=== PATIENT | male | born 1945 | race Caucasian/White ===

== ENCOUNTER 2018-03-07 14:10 | Observation (INO) | payer MEDICARE, BC ==
--- NOTE | 2018-03-07 14:38 | EDM.PDOC ---
ED HPI GENERAL MEDICAL PROBLEM - General Stated Complaint: STOMACH PAIN Time Seen by Provider: 03/07/18 14:28 Source of Information: Reports: Patient History Limitations: Reports: No Limitations - History of Present Illness INITIAL COMMENTS - FREE TEXT/NARRATIVE: This 72 yo male patient reports to the ED with increased abdominal pain. The patient reports his abdominal pain started at about noon. The patient reports he attempted to eat lunch, but vomited after eating 1/2 hamburger. The patient reports he has had a similar episode in the past which got better after he had an NG tube placed and stayed in the [facility] for a couple of days. 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 The patient reports no additional symptoms or concerns at this time. Onset: Today Onset Date: 03/07/18 Onset Time: 12:00 Duration: Constant, Getting Worse Location: Reports: Abdomen (pain and cramping) Quality: Reports: Ache, Sharp Severity: Severe Improves with: Reports: None Worsens with: Reports: None Associated Symptoms: Reports: Nausea/Vomiting Middle Abdomen Pain Score (Numeric/FACES): 10 - Related Data Allergies Allergy/AdvReac Type Severity Reaction Status Date / Time Penicillins Allergy Hives Verified 03/07/18 14:36 ED ROS GENERAL - Review of Systems Review Of Systems: ROS reveals no pertinent complaints other than HPI. ED EXAM, GI/ABD - Physical Exam Exam: See Below Exam Limited By: No Limitations General Appearance: Alert, WD/WN, Moderate Distress, Thin Eyes: Bilateral: Normal Appearance, EOMI Ears: Normal External Exam, Normal Canal, Hearing Grossly Normal, Normal TMs Nose: Normal Inspection, Normal Mucosa, No Blood Throat/Mouth: Normal Lips, Normal Teeth, Normal Voice, No Airway Compromise, Other (posterior pharynx erythema) Head: Atraumatic, Normocephalic Neck: Normal Inspection, Supple, Non-Tender, Full Range of Motion Respiratory/Chest: No Respiratory Distress, Lungs Clear, Normal Breath Sounds, No Accessory Muscle Use, Chest Non-Tender Cardiovascular: Normal Peripheral Pulses, Regular Rate, Rhythm, No Edema, No Gallop, No JVD, No Murmur, No Rub GI/Abdominal Exam: Tender (generalized diffuse abdominal tenderness), Abnormal Bowel Sounds, Other (bruit left abdomen) (Male) Exam: Deferred Rectal (Males) Exam: Deferred Back Exam: Normal Inspection, Full Range of Motion, NT Extremities: Normal Inspection, Normal Range of Motion, Non-Tender, Normal Capillary Refill, No Pedal Edema Neurological: Alert, Oriented, CN II-XII Intact, Normal Cognition, Normal Gait, Normal Reflexes, No Motor/Sensory Deficits Psychiatric: Normal Affect, Normal Mood Skin Exam: Warm, Dry, Intact, Normal Color, No Rash Lymphatic: No Adenopathy Course - Vital Signs Last Recorded V/S: Last Vital Signs Temp 36.6 C 03/07/18 14:29 Pulse 70 03/07/18 14:29 Resp 16 03/07/18 14:29 BP 103/59 L 03/07/18 14:29 Pulse Ox 97 03/07/18 14:29 - Orders/Labs/Meds Orders: Active Orders 24 hr Category Date Time Status Abdomen Pelvis w Cont [CT] Urgent Exams 03/07/18 15:31 Ordered Labs: Laboratory Tests 03/07/18 03/07/18 03/07/18 Range/Units 14:37 14:37 14:37 WBC 8.6 (5.0-10.0) 10^3/uL RBC 4.79 (4.6-6.2) 10^6/uL Hgb 15.2 (14.0-18.0) g/dL Hct 44.0 (40.0-54.0) % MCV 91.9 (80-100) fL MCH 31.7 (27.0-34.0) pg MCHC 34.5 (33.0-35.0) g/dL Plt Count 197 (150-450) 10^3/uL Neut % (Auto) 74.2 (42.2-75.2) % Lymph % (Auto) 17.9 L (20.5-50.1) % [place] % (Auto) 7.0 (2-8) % Eos % (Auto) 0.7 L (1.0-3.0) % Baso % (Auto) 0.2 (0.0-1.0) % Sodium 135 (135-145) mmol/L Potassium 4.1 (3.6-5.0) mmol/L Chloride 100 L (101-111) mmol/L Carbon Dioxide 25.0 (21.0-31.0) mmol/L Anion Gap 14.1 BUN 28 H (7-18) mg/dL Creatinine 1.1 (0.6-1.3) mg/dL Est Cr Clr Drug Dosing 55.26 mL/min Estimated GFR (MDRD) > 60 BUN/Creatinine Ratio 25.45 Glucose 108 H (74-105) mg/dL Calcium 9.2 (8.4-10.2) mg/dl Magnesium 2.0 (1.8-2.5) mg/dL Total Bilirubin 1.1 H (0.2-1.0) mg/dL AST 24 (10-42) IU/L ALT 18 (10-60) IU/L Alkaline Phosphatase 48 (42-121) IU/L Total Protein 7.2 (6.7-8.2) g/dl Albumin 4.1 (3.2-5.5) g/dl Globulin 3.1 Albumin/Globulin Ratio 1.32 Amylase 81 (28-100) U/L Lipase 24 (22-51) U/L Meds: Medications Discontinued Medications Generic Name Dose Route Start Last Admin Trade Name Freq PRN Reason Stop Dose Admin Iopamidol 75 ml 03/07/18 15:31 03/07/18 15:54 Isovue-300 (61%) IVPUSH 03/07/18 15:32 75 ml ONETIME ONE Administration Departure - Departure Time of Disposition: 16:35 Disposition: Home, Self-Care 01 Condition: Fair Clinical Impression: Ileus, Small bowel obstruction - Discharge Information Care Plan Goals: Discussed the examination, history, lab and CT results with Dr. Liz during the visit. Dr. Liz accepted the patient for continued evaluation and management as an inpatient at [facility]. - My Orders Last 24 Hours: My Active Orders 03/07/18 15:31 Abdomen Pelvis w Cont [CT] Urgent - Assessment/Plan Last 24 Hours: My Active Orders 03/07/18 15:31 Abdomen Pelvis w Cont [CT] Urgent
[2018-03-07 15:05] LABS: CHLORIDE,CL 100 mmol/L (101-111); SODIUM,NA 135 mmol/L (135-145)
[2018-03-07] MEDS ORDERED: Iopamidol 612 MG/ML 75 ML Bottle IVPUSH ONE (15:31)
[2018-03-07] MEDS ORDERED: oxyCODONE 5 MG Tab PO PRN (17:49)
[2018-03-07] MEDS ORDERED: Sodium Chloride 0.9% 10 ML Syringe FLUSH PRN (17:49)
[2018-03-07] MEDS ORDERED: Acetaminophen 325 MG Tab PO PRN (17:49)
[2018-03-07] MEDS ORDERED: Zolpidem 5 MG Tab PO PRN (17:49)
[2018-03-07] MEDS ORDERED: Ondansetron 4 MG/2 ML SDV IVPUSH PRN (17:49)
[2018-03-07] MEDS ORDERED: Ondansetron 4 MG Tab.DIS PO PRN (17:49)
--- NOTE | 2018-03-07 18:08 | PCM.HP ---
H&P History of Present Illness - General Date of Service: 03/07/18 Admit Problem/Dx: Admission Diagnosis/Problem Admission Diagnosis/Problem Abdominal pain Source of Information: Patient - History of Present Illness Initial Comments - Free Text/Narative: The patient is a 72-year-old gentleman with a history of hypertension, dyslipidemia, peripheral artery disease. The patient has a history of found aorto femoral bypass with the abdominal scars. The patient has a history of prior small bowel obstruction likely due to adhesions. He developed sudden onset of abdominal pain associated with nausea. He had a hamburger that he vomited after that. Symptoms started are unknown. The patient came to the emergency room was given pain medication He is feeling well now. No further nausea, distention of the abdomen. Last bowel movement was in the morning which was normal and then around known after the pain had another one which was small amount but nonbloody not unusual. He's feeling well now. No associated fever. No sick contact. Symptoms are similar to what he had with his prior partial small bowel obstruction. Middle Abdomen Pain Score (Numeric/FACES): 10 - Related Data Allergies/Adverse Reactions: Allergies Allergy/AdvReac Type Severity Reaction Status Date / Time Penicillins Allergy Hives Verified 03/07/18 14:36 shellfish derived Allergy Nausea and Verified 03/07/18 17:03 Vomiting Past Medical History HEENT History: Reports: Cataract Cardiovascular History: Reports: High Cholesterol, Hypertension Hematologic History: Reports: Other (See Below) Other Hematologic History: History of blood clot behind knee in the past. - Infectious Disease History Infectious Disease History: Reports: Chicken Pox, Mumps - Past Surgical History HEENT Surgical History: Reports: Cataract Surgery GI Surgical History: Reports: Other (See Below) Other GI Surgeries/Procedures: abdominal surgery to increase bloodflow to the legs(?) Social & Family History - Family History Family Medical History: Noncontributory - Tobacco Use Smoking Status *Q: Current Every Day Smoker Years of Tobacco use: 50 Packs/Tins Daily: 1 - Caffeine Use Caffeine Use: Reports: Coffee, Soda - Recreational Drug Use Recreational Drug Use: No H&P Review of Systems - Review of Systems: Review Of Systems: See Below General: Denies: Fever Pulmonary: Denies: Shortness of Breath Cardiovascular: Denies: Chest Pain, Edema Gastrointestinal: Reports: Abdominal Pain, Nausea, Vomiting. Denies: Constipation, Diarrhea Psychiatric: Denies: Confusion Neurological: Denies: Dizziness Exam - Exam Exam: See Below - Vital Signs Vital Signs: Last Vital Signs Temp 36.9 C 03/07/18 17:15 Pulse 71 03/07/18 17:15 Resp 16 03/07/18 17:15 BP 138/63 03/07/18 17:15 Pulse Ox 98 03/07/18 17:15 Weight: 63.82 kg - Exam General: Alert, Oriented Neck: Supple Lungs: Clear to Auscultation, Normal Respiratory Effort Cardiovascular: Regular Rate, Regular Rhythm GI/Abdominal Exam: Normal Bowel Sounds, Soft, Non-Tender, No Distention Extremities: No Pedal Edema - Patient Data Lab Results Last 24 hrs: Laboratory Results - last 24 hr 03/07/18 03/07/18 03/07/18 Range/Units 14:37 14:37 14:37 WBC 8.6 (5.0-10.0) 10^3/uL RBC 4.79 (4.6-6.2) 10^6/uL Hgb 15.2 (14.0-18.0) g/dL Hct 44.0 (40.0-54.0) % MCV 91.9 (80-100) fL MCH 31.7 (27.0-34.0) pg MCHC 34.5 (33.0-35.0) g/dL Plt Count 197 (150-450) 10^3/uL Neut % (Auto) 74.2 (42.2-75.2) % Lymph % (Auto) 17.9 L (20.5-50.1) % [place] % (Auto) 7.0 (2-8) % Eos % (Auto) 0.7 L (1.0-3.0) % Baso % (Auto) 0.2 (0.0-1.0) % Sodium 135 (135-145) mmol/L Potassium 4.1 (3.6-5.0) mmol/L Chloride 100 L (101-111) mmol/L Carbon Dioxide 25.0 (21.0-31.0) mmol/L Anion Gap 14.1 BUN 28 H (7-18) mg/dL Creatinine 1.1 (0.6-1.3) mg/dL Est Cr Clr Drug Dosing 55.26 mL/min Estimated GFR (MDRD) > 60 BUN/Creatinine Ratio 25.45 Glucose 108 H (74-105) mg/dL Calcium 9.2 (8.4-10.2) mg/dl Magnesium 2.0 (1.8-2.5) mg/dL Total Bilirubin 1.1 H (0.2-1.0) mg/dL AST 24 (10-42) IU/L ALT 18 (10-60) IU/L Alkaline Phosphatase 48 (42-121) IU/L Total Protein 7.2 (6.7-8.2) g/dl Albumin 4.1 (3.2-5.5) g/dl Globulin 3.1 Albumin/Globulin Ratio 1.32 Amylase 81 (28-100) U/L Lipase 24 (22-51) U/L Result Diagrams: 03/07/18 14:37 03/07/18 14:37 Imaging Impressions Last 24 hrs: CT of the abdomen was done Per reading there is moderately dilated, fluid-filled distal small bowel seen Problem List Initiated/Reviewed/Updated: Yes Orders Last 24hrs: Active Orders 24 hr Category Date Time Status Patient Status [ADT] Routine ADT 03/07/18 17:49 Active Oxygen Therapy [RC] PRN Care 03/07/18 17:49 Active Peripheral IV Care [RC] . DIRECTED Care 03/07/18 17:52 Active Up With Assistance [RC] ASDIRECTED Care 03/07/18 17:49 Active VTE/DVT Education [RC] PER UNIT ROUTINE Care 03/07/18 17:49 Active Vital Signs [RC] Q4H Care 03/07/18 17:49 Active Clear Liquid Diet [DIET] Diet 03/07/18 Breakfast Active BASIC METABOLIC PANEL,BMP [CHEM] AM Lab 03/08/18 05:11 Ordered CBC WITH AUTO DIFF [HEME] AM Lab 03/08/18 05:11 Ordered Acetaminophen [Tylenol] Med 03/07/18 17:49 Active 650 mg PO Q4H PRN Aspirin Med 03/08/18 08:00 Active 81 mg PO WITHBREAKFAST Heparin Sodium Med 03/07/18 22:00 Active 5,000 units SUBCUT Q8HR Hydrochlorothiazide Med 03/08/18 09:00 Active 12.5 mg PO DAILY Lisinopril [Prinivil] Med 03/08/18 09:00 Active 10 mg PO DAILY Magnesium Oxide Med 03/07/18 18:00 Active 250 mg PO BIDM NS + KCl 20mEq/L [Normal Saline with 20 mEq KCl] 1,000 Med 03/07/18 17:45 Active ml IV ASDIRECTED Ondansetron [Zofran ODT] Med 03/07/18 17:49 Active 4 mg PO Q6H PRN Ondansetron [Zofran] Med 03/07/18 17:49 Active 4 mg IVPUSH Q4H PRN Simvastatin [Zocor] Med 03/07/18 21:00 Ordered 40 mg PO BEDTIME Sodium Chloride 0.9% [Saline Flush] Med 03/07/18 17:49 Ordered 10 ml FLUSH ASDIRECTED PRN Zolpidem [Ambien] Med 03/07/18 17:49 Ordered 5 mg PO BEDTIME PRN oxyCODONE Med 03/07/18 17:49 Active 5 mg PO Q4H PRN Antiembolic Hose [OM.PC] Per Unit Routine Oth 03/07/18 17:51 Ordered Peripheral IV Insertion Adult [OM.PC] Routine Oth 03/07/18 17:49 Ordered Resuscitation Status Routine Resus Stat 03/07/18 17:49 Ordered Medication Orders Acetaminophen (Tylenol) 650 mg PO Q4H PRN PRN Reason: Pain (Mild 1-3)/fever Aspirin (Aspirin) 81 mg PO WITHBREAKFAST AMY Heparin Sodium (Porcine) (Heparin Sodium) 5,000 units SUBCUT Q8HR [facility]Y Hydrochlorothiazide (Hydrochlorothiazide) 12.5 mg PO DAILY AMY Potassium Chloride/Sodium Chloride (Normal Saline With 20 Meq Kcl) 1,000 mls @ 100 mls/hr IV ASDIRECTED AMY Lisinopril (Prinivil) 10 mg PO DAILY AMY Magnesium Oxide (Magnesium Oxide) 250 mg PO BIDM AMY Ondansetron HCl (Zofran Odt) 4 mg PO Q6H PRN PRN Reason: nausea, able to take PO Ondansetron HCl (Zofran) 4 mg IVPUSH Q4H PRN PRN Reason: Nausea/Vomiting Oxycodone HCl (Oxycodone) 5 mg PO Q4H PRN PRN Reason: Pain (moderate 4-6) Simvastatin (Zocor) 40 mg PO BEDTIME AMY Sodium Chloride (Saline Flush) 10 ml FLUSH ASDIRECTED PRN PRN Reason: Keep Vein Open Zolpidem Tartrate (Ambien) 5 mg PO BEDTIME PRN PRN Reason: Sleep Assessment/Plan Comment:: The patient is a 72-year-old gentleman with a history of prior intra-abdominal surgery, small bowel obstruction. Presented with abdominal pain associated with nausea. No fever and no distention associated with this. Abdominal pain and nausea resolved. #1 partial small bowel obstruction Appears improving No significant distention or nausea, I will hold off on NG tube placement. Will keep on clear liquid diet, start IV fluid hydration. Morphine for pain IV as needed #2 hypertension Treat with lisinopril, hydrochlorothiazide #3 peripheral artery disease Continue aspirin #4 dyslipidemia Continue on Zocor #5 DVT prophylaxis will be with subcutaneous heparin
[2018-03-07] MEDS: NS + KCl 20mEq/L 1,000 ML IV SCH (18:18)
[2018-03-07] MEDS ORDERED: Simvastatin 40 MG Tab PO SCH (21:00)
[2018-03-07] MEDS: Heparin Sodium 5,000 Units/ML Vial SUBCUT SCH (21:24)
[2018-03-08] MEDS: NS + KCl 20mEq/L 1,000 ML IV SCH (04:30)
[2018-03-08] MEDS: Heparin Sodium 5,000 Units/ML Vial SUBCUT SCH (06:08)
[2018-03-08 06:35] LABS: CHLORIDE,CL 105 mmol/L (101-111); SODIUM,NA 136 mmol/L (135-145)
[2018-03-08] MEDS ORDERED: Aspirin 81 MG Tab.Chew PO SCH (08:00)
[2018-03-08] MEDS ORDERED: Hydrochlorothiazide 25 MG Tab PO SCH (09:00)
[2018-03-08] MEDS ORDERED: Lisinopril 10 MG Tab PO SCH (09:00)
--- NOTE | 2018-03-08 10:01 | PCM.DCSUM1 ---
Discharge Summary - Hospital Course Free Text/Narrative:: The patient is a 72-year-old gentleman with a history of prior intra-abdominal surgery, small bowel obstruction. Presented with abdominal pain associated with nausea. No fever and no distention associated with this. Abdominal pain and nausea resolved. #1 partial small bowel obstruction Resolved with conservative treatment with clear liquid diet Passing gas, no distention #2 hypertension Treat with lisinopril, hydrochlorothiazide #3 peripheral artery disease Continue aspirin #4 dyslipidemia Continue on Zocor - Discharge Data Discharge Date: 03/08/18 Discharge Disposition: Home, Self-Care 01 Condition: Good - Patient Instructions Diet: Heart Healthy Diet Activity: As Tolerated - Discharge Plan Home Medications: Home Meds Aspirin [Halfprin] 81 mg PO DAILY 03/07/18 [History] Fish Oil/[place]-3 Fatty Acids [Fish Oil] 1,200 mg PO DAILY 03/07/18 [History] Hydrochlorothiazide 12.5 mg PO DAILY 03/07/18 [History] Lisinopril 20 mg PO DAILY 03/07/18 [History] Magnesium Oxide [Magnesium] 400 mg PO BID 03/07/18 [History] Simvastatin [Zocor] 40 mg PO BEDTIME 03/07/18 [History] Referrals: PCP,None [Primary Care Provider] - (in 2-3 days) - Discharge Summary/Plan Comment DC Time >30 min.: No - Patient Data Vitals - Most Recent: Last Vital Signs Temp 36.7 C 03/08/18 07:00 Pulse 61 03/08/18 07:00 Resp 18 03/08/18 07:00 BP 132/76 03/08/18 08:34 Pulse Ox 97 03/08/18 07:00 Weight - Most Recent: 63.82 kg I&O - Last 24 hours: Intake & Output 03/07/18 03/08/18 03/08/18 22:59 06:59 14:59 Intake Total 200 1465 Output Total 200 500 Balance 0 965 Lab Results - Last 24 hrs: Laboratory Results - last 24 hr 03/07/18 03/07/18 03/07/18 Range/Units 14:37 14:37 14:37 WBC 8.6 (5.0-10.0) 10^3/uL RBC 4.79 (4.6-6.2) 10^6/uL Hgb 15.2 (14.0-18.0) g/dL Hct 44.0 (40.0-54.0) % MCV 91.9 (80-100) fL MCH 31.7 (27.0-34.0) pg MCHC 34.5 (33.0-35.0) g/dL Plt Count 197 (150-450) 10^3/uL Neut % (Auto) 74.2 (42.2-75.2) % Lymph % (Auto) 17.9 L (20.5-50.1) % [place] % (Auto) 7.0 (2-8) % Eos % (Auto) 0.7 L (1.0-3.0) % Baso % (Auto) 0.2 (0.0-1.0) % Sodium 135 (135-145) mmol/L Potassium 4.1 (3.6-5.0) mmol/L Chloride 100 L (101-111) mmol/L Carbon Dioxide 25.0 (21.0-31.0) mmol/L Anion Gap 14.1 BUN 28 H (7-18) mg/dL Creatinine 1.1 (0.6-1.3) mg/dL Est Cr Clr Drug Dosing 55.26 mL/min Estimated GFR (MDRD) > 60 BUN/Creatinine Ratio 25.45 Glucose 108 H (74-105) mg/dL Calcium 9.2 (8.4-10.2) mg/dl Magnesium 2.0 (1.8-2.5) mg/dL Total Bilirubin 1.1 H (0.2-1.0) mg/dL AST 24 (10-42) IU/L ALT 18 (10-60) IU/L Alkaline Phosphatase 48 (42-121) IU/L Total Protein 7.2 (6.7-8.2) g/dl Albumin 4.1 (3.2-5.5) g/dl Globulin 3.1 Albumin/Globulin Ratio 1.32 Amylase 81 (28-100) U/L Lipase 24 (22-51) U/L 03/08/18 03/08/18 Range/Units 05:25 05:25 WBC 7.3 (5.0-10.0) 10^3/uL RBC 4.56 L (4.6-6.2) 10^6/uL Hgb 14.3 (14.0-18.0) g/dL Hct 42.7 (40.0-54.0) % MCV 93.6 (80-100) fL MCH 31.4 (27.0-34.0) pg MCHC 33.5 (33.0-35.0) g/dL Plt Count 203 (150-450) 10^3/uL Neut % (Auto) 53.2 (42.2-75.2) % Lymph % (Auto) 33.3 (20.5-50.1) % [place] % (Auto) 11.2 H (2-8) % Eos % (Auto) 2.2 (1.0-3.0) % Baso % (Auto) 0.1 (0.0-1.0) % Sodium 136 (135-145) mmol/L Potassium 4.3 (3.6-5.0) mmol/L Chloride 105 (101-111) mmol/L Carbon Dioxide 25.0 (21.0-31.0) mmol/L Anion Gap 10.3 BUN 20 H (7-18) mg/dL Creatinine 0.8 (0.6-1.3) mg/dL Est Cr Clr Drug Dosing 74.24 mL/min Estimated GFR (MDRD) > 60 BUN/Creatinine Ratio Glucose 84 (74-105) mg/dL Calcium 8.6 (8.4-10.2) mg/dl Magnesium (1.8-2.5) mg/dL Total Bilirubin (0.2-1.0) mg/dL AST (10-42) IU/L ALT (10-60) IU/L Alkaline Phosphatase (42-121) IU/L Total Protein (6.7-8.2) g/dl Albumin (3.2-5.5) g/dl Globulin Albumin/Globulin Ratio Amylase (28-100) U/L Lipase (22-51) U/L Med Orders - Current: Current Medications Acetaminophen (Tylenol) 650 mg PO Q4H PRN PRN Reason: Pain (Mild 1-3)/fever Aspirin (Aspirin) 81 mg PO WITHBREAKFAST [facility] Last Admin: 03/08/18 08:34 Dose: 81 mg Heparin Sodium (Porcine) (Heparin Sodium) 5,000 units SUBCUT Q8HR [facility] Last Admin: 03/08/18 06:08 Dose: 5,000 units Hydrochlorothiazide (Hydrochlorothiazide) 12.5 mg PO DAILY [facility] Last Admin: 03/08/18 08:34 Dose: 12.5 mg Lisinopril (Prinivil) 10 mg PO DAILY [facility] Last Admin: 03/08/18 08:34 Dose: 10 mg Magnesium Oxide (Magnesium Oxide) 250 mg PO BIDM [facility] Last Admin: 03/08/18 08:34 Dose: 250 mg Ondansetron HCl (Zofran Odt) 4 mg PO Q6H PRN PRN Reason: nausea, able to take PO Ondansetron HCl (Zofran) 4 mg IVPUSH Q4H PRN PRN Reason: Nausea/Vomiting Oxycodone HCl (Oxycodone) 5 mg PO Q4H PRN PRN Reason: Pain (moderate 4-6) Simvastatin (Zocor) 40 mg PO BEDTIME [facility] Last Admin: 03/07/18 21:21 Dose: 40 mg Sodium Chloride (Saline Flush) 10 ml FLUSH ASDIRECTED PRN PRN Reason: Keep Vein Open Zolpidem Tartrate (Ambien) 5 mg PO BEDTIME PRN PRN Reason: Sleep Discontinued Medications Potassium Chloride/Sodium Chloride (Normal Saline With 20 Meq Kcl) 1,000 mls @ 100 mls/hr IV ASDIRECTED [facility] Last Admin: 03/08/18 04:30 Dose: 100 mls/hr Iopamidol (Isovue-300 (61%)) 75 ml IVPUSH ONETIME ONE Stop: 03/07/18 15:32 Last Admin: 03/07/18 15:54 Dose: 75 ml
== END 2018-03-08 11:40 | disposition home or self-care (01) ==
LOC: DL.ED 14:10 → DL.MS 16:52 → UNDOADMOB 16:52 → INTOOBSV 16:52 → DL.MS 17:49
PROVIDERS: ADMIT Internal Medicine; ATTEND Internal Medicine
DX: K56.600 Partial intestinal obstruction, unspecified as to cause (principal); I10 Essential (primary) hypertension; I73.9 Peripheral vascular disease, unspecified; E78.5 Hyperlipidemia, unspecified; F17.210 Nicotine dependence, cigarettes, uncomplicated; Z79.82 Long term (current) use of aspirin; Z79.899 Other long term (current) drug therapy; Z98.890 Other specified postprocedural states; Z88.0 Allergy status to penicillin; Z91.013 Allergy to seafood
CPT/HCPCS: 36415; 74177; 80048; 80053; 82150; 83690; 83735; 85025; 99285; A9270; J1644; J3480; Q9967; 96360; 96361; 96372; G0378